=== PATIENT | female | born 1960 | race American Indian/Alaskan Native ===

== ENCOUNTER 2018-08-13 14:49 | Emergency (ER) | payer BC ==
[~2018-08-13] VITALS: Ht 157.5 cm; Wt 61.7 kg
[2018-08-13 15:16] VITALS: Ht 157.5 cm; Wt 61.7 kg
[2018-08-13 18:40] VITALS: BP 121/76
== END 2018-08-13 18:40 | disposition home or self-care (01) ==
LOC: ED 14:49
DX: Z77.120 Contact with and (suspected) exposure to mold (toxic) (principal); R42 Dizziness and giddiness; E03.9 Hypothyroidism, unspecified
CPT/HCPCS: 36600